=== PATIENT | female | born 2000 | race Two or more races ===

== ENCOUNTER 2021-01-23 02:36 | Emergency (ER) | payer OTHER ==
[~2021-01-23] VITALS: Ht 170.2 cm; Wt 79.4 kg
[2021-01-23 02:38] VITALS: BP 110/64
== END 2021-01-23 03:01 | disposition left against medical advice (07) ==
LOC: ER 02:38
DX: S40.862A Insect bite (nonvenomous) of left upper arm, initial encounter (principal); Z53.21 Procedure and treatment not carried out due to patient leaving prior to being seen by health care provider; W57.XXXA Bitten or stung by nonvenomous insect and other nonvenomous arthropods, initial encounter; Y93.89 Activity, other specified; Y92.89 Other specified places as the place of occurrence of the external cause; Y99.8 Other external cause status